=== PATIENT | male | born 2000 | race Caucasian/White ===

== ENCOUNTER 2018-07-24 12:11 | Emergency (ER) | payer OTHER ==
[~2018-07-24] VITALS: Ht 172.7 cm; Wt 59.0 kg
[2018-07-24 12:15] VITALS: BP_SYST 103
[2018-07-24] MEDS ORDERED: LORazepam 2 MG/ML VIAL (FOR ER USE) IVP ONE ×2 (12:30→14:45)
[2018-07-24 12:45] LABS: BASOPHILS % (AUTO) 0.4 % (0.0-2.0); EOSINOPHILS % (AUTO) 0.6 % (0.0-4.0); HEMATOCRIT 51.3 % (36-54); HEMOGLOBIN 16.8 g/dL (14.0-18.0); LYMPHOCYTES # (AUTO) 1.1 K/uL (1.0-5.5); LYMPHOCYTES % (AUTO) 18.6 % (20.5-51.5); MEAN CORPUSCULAR HEMOGLOBIN 28 pg (27-31); MEAN CORPUSCULAR HGB CONC 33 % (32-36); MEAN CORPUSCULAR VOLUME 87 fL (79.0-98.0); MONOCYTES # (AUTO) 0.3 K/uL (0.0-1.0); MONOCYTES % (AUTO) 5.2 % (1.7-9.3); NEUTROPHILS # (AUTO) 4.7 K/uL (1.8-7.7); NEUTROPHILS % (AUTO) 75.2 % (40.0-70.0); PLATELET COUNT (AUTO) 187 K/uL (130-430); RED BLOOD CELL COUNT(AUTO) 5.92 MIL/uL (4.2-6.2); RED CELL DISTRIBUTION WIDTH 12.6 % (9.0-15.0); WHITE BLOOD COUNT (AUTO) 6.1 K/uL (4.5-11.0)
[2018-07-24] MEDS ORDERED: NACL 0.9% 1,000 ML IV ONE (12:45)
[2018-07-24 12:55] LABS: ANION GAP 15 (5-15); CALCIUM 9.4 mg/dL (8.4-11.0); CHLORIDE 100 mmol/L (98-107); CREATININE 1.06 mg/dL (0.55-1.30); GLUCOSE 130 mg/dL (70-99); POTASSIUM 4.5 mmol/L (3.5-5.1); SODIUM SERUM 138 mmol/L (136-145); UREA NITROGEN, BLOOD 7 mg/dL (8-21)
[2018-07-24 13:00] LABS: PROTHROMBIN TIME 10.4 SECS (9.5-12.5)
[2018-07-24 13:08] LABS: GFR AFRICAN AMERICAN 116 mL/min (>90)
[2018-07-24 13:09] LABS: ALANINE AMINOTRANSFERASE 11 U/L (12-78); ALBUMIN 4.6 g/dL (3.4-4.8); ASPARTATE AMINOTRANSFERASE 13 U/L (10-37); FREE T4 (FREE THYROXINE) 0.8 ng/dl (0.8-1.5); TOTAL BILIRUBIN 0.4 mg/dL (0.0-1.0)
[2018-07-24 13:19] LABS: ALCOHOL, BLOOD < 3 mg/dL (<10)
[2018-07-24 13:38] LABS: BILIRUBIN,URINE NEGATIVE (NEGATIVE); BLOOD, URINE 1+ (NEGATIVE); COLOR,URINE YELLOW (YELLOW); GLUCOSE,URINE 2+ (NEGATIVE); KETONES,URINE NEGATIVE (NEGATIVE); LEUKOCYTE ESTERASE ,URINE NEGATIVE (NEGATIVE); NITRITE, URINE NEGATIVE (NEGATIVE); PROTEIN URINE TRACE (NEGATIVE); UROBILINOGEN,URINE 0.2 (0.2-1.0)
[2018-07-24 13:40] LABS: CLARITY/URINE SLIGHTLY HAZY (CLEAR)
[2018-07-24 13:47] LABS: BACTERIA,URINE RARE /HPF (None Seen); MUCUS,URINE 1+ /LPF (None Seen); WBC,URINE 0-3 /HPF (0-3)
[2018-07-24 13:55] LABS: BARBITURATE, URINE NEGATIVE (NEG <=200); BENZODIAZEPINE, URINE NEGATIVE (NEG <=150); CANNABINOID, URINE POSITIVE (NEG <=50); COCAINE, URINE NEGATIVE (NEG <=150); METHAMPHETAMINES SCREEN,URINE NEGATIVE (NEG <=500); OPIATE, URINE POSITIVE (NEG <=100); PHENCYCLIDINE SCREEN,URINE NEGATIVE (NEG <=25); UR TRICYCLIC ANTIDEPRESSANTS NEGATIVE (NEG <=300); URINE AMPHETAMINE NEGATIVE (NEG <=500); URINE METHADONE NEGATIVE (NEG <=200); URINE OXYCODONE SCREEN NEGATIVE (NEG <=100); URINE PROPOXYPHENE SCREEN NEGATIVE (NEG <=300)
[2018-07-24] MEDS ORDERED: LIDOCAINE/EPI 2% 1:100000 20 ML VIAL INJ ONE (14:30)
[2018-07-24] MEDS ORDERED: KETOROLAC TROMETHAMINE 30 MG VIAL IVP ONE (14:30)
[2018-07-24 15:30] VITALS: BP_SYST 128
== END 2018-07-24 15:30 | disposition home or self-care (01) ==
LOC: SED 12:11
DX: S01.112A Laceration without foreign body of left eyelid and periocular area, initial encounter (principal); X58.XXXA Exposure to other specified factors, initial encounter; Y93.89 Activity, other specified; Y92.89 Other specified places as the place of occurrence of the external cause; Y99.8 Other external cause status
CPT/HCPCS: 12011; 36415; 70450; 71045; 80053; 80307; 81000; 83605; 84439; 85025; 85379; 85610; 87040; 96374; 96375; 96376; 99284; G0482; J1885; J2060